=== PATIENT | male | born 1950 | race Asian ===

== ENCOUNTER → 2024-05-02 | Outpatient (CLI) | payer OTHER, MEDICAID, SELFPAY ==
--- NOTE | 2024-05-02 10:27 | XR_ITS ---
Examination: Knee, left , 3 views Technique: Knee AP, lateral, oblique 3 views Date and time of exam: May 02, 2024 1156 hours INDICATIONS: Left knee pain beginning 2 years ago FINDINGS: Moderate osteopenia Mild narrowing medial joint space Moderate knee effusion seen with internal derangement of the knee IMPRESSION: Mild narrowing medial joint space No fracture Moderate knee effusion
== END | disposition home or self-care (01) ==
PROVIDERS: PCP Physician Assistant; Referring Provider Physician Assistant; Visit Provider Physician Assistant
DX: M25.462 Effusion, left knee (principal); M25.862 Other specified joint disorders, left knee
CPT/HCPCS: 73562

== ENCOUNTER → 2024-06-10 | Outpatient (CLI) | payer OTHER, MEDICAID, SELFPAY ==
--- NOTE | 2024-06-10 13:30 | XR_ITS ---
Exam: MRI knee without contrast, left Date and time of exam: June 10, 2024 at 1409 hours INDICATIONS: Left knee pain beginning March 2024 Technique: Multiple axial, coronal, and sagittal sections on the knee have been obtained. T2-Weighted sagittal, fat-suppressed images, TR 3,500, TE 62, T2 weighted coronal fat-saturated images, TR 3,500, TE 62 Proton density sagittal sections, TR 1800, TE 31. T-1 weighted coronal images, TR 524, TE 13.0 Findings: Medial meniscus anterior horn intact. Medial meniscus, body is intact. Posterior horn medial meniscus intact. Lateral meniscus anterior horn is intact Lateral meniscus, body is intact Posterior horn lateral meniscus is intact Anterior cruciate ligament appears intact. Posterior cruciate ligament appears intact. Knee effusion is large with suprapatellar joint like. Quadriceps and patellar tendons appear intact. There is no evidence of tendinosis. Inflammatory change or fracture of Hoffa's fat pad is not seen. Medial patellar facet demonstrates moderate thinning. Lateral patellar facet cartilage demonstrates moderate thinning. Trochlear cartilage demonstrates moderate thinning. Marrow signal adequate. 16mm ossified joint body suprapatellar joint space, 10 mm ossified joint body posterior joint space Medial collateral ligament appears intact. No meniscocapsular separation is seen. Illiotibial band and fibular collateral ligament are intact. Biceps femoris tendons appear intact. Medial femoral condylar articular cartilage demonstrates moderate thinning. Lateral femoral condylar articular cartilage demonstratesmoderate thinning. Tibial plateau cartilage demonstrates moderate thinning. Impression: Moderate sprain anterior cruciate ligament Ossified joint bodies as above
== END | disposition home or self-care (01) ==
LOC: SMRI 06-13 08:12
PROVIDERS: PCP Physician Assistant; Referring Provider Physician Assistant; Visit Provider Physician Assistant
DX: S83.512A Sprain of anterior cruciate ligament of left knee, initial encounter (principal); X58.XXXA Exposure to other specified factors, initial encounter; M67.864 Other specified disorders of tendon, left knee
CPT/HCPCS: 73721

== ENCOUNTER → 2024-07-31 | Outpatient (CLI) | payer OTHER, MEDICAID, SELFPAY ==
--- NOTE | 2024-07-31 09:00 | XR_ITS ---
Examination: Upper GI series with KUB Fluoroscopy Esophagram standard Exam date and time: July 31, 2024 1109 hours INDICATIONS: Abdominal pain and bloating beginning one year ago TECHNIQUE AND FINDINGS: Prop Sawyer AP supine abdomen demonstrates moderate to large amounts of stool throughout the colon Patient swallowed thin barium with 34 spot fluoroscopic films of the esophagus stomach and duodenum obtained Primary peristaltic esophageal waves noted Moderate intermittent gastroesophageal reflux No encasing constricting esophageal lesion Mild intermittent gastroesophageal reflux There is no stricture at the gastroesophageal junction No gastric mass deformity or ulceration Duodenal bulb expands symmetrically Small benign duodenal diverticulum second portion of the duodenum Jejunal loops unremarkable IMPRESSION: Moderate intermittent gastroesophageal reflux No gastric mass deformity or ulceration Negative for duodenitis Fluoroscopy 0.31 minutes 34 spot fluoroscopic films of the esophagus stomach
== END | disposition home or self-care (01) ==
PROVIDERS: PCP Physician Assistant; Referring Provider Physician Assistant; Visit Provider Physician Assistant
DX: K21.9 Gastro-esophageal reflux disease without esophagitis (principal)
CPT/HCPCS: 74240; Z7610

== ENCOUNTER 2024-08-22 13:56 | Outpatient (AMB) | payer OTHER, MEDICAID, SELFPAY ==
[2024-08-22 14:16] VITALS: BP 130/77; PULSE 82; RESP 18; TEMP 36.3; O2SAT 96; BMI 24.7
--- NOTE | 2024-08-22 14:16 | PD.ORTHCLVIS ---
Vital signs 08/22/24 14:16 Height 1.47 m Height Method Stated Weight 53.666 kg Weight Measurement Method Standing Scale BMI 24.7 BP 130/77 Blood Pressure Source Automatic Cuff Blood Pressure Location Left Upper Arm Position Sitting Respiration 18 Pulse 82 Pulse Source Monitor Temp 97.3 F Temp Source Temporal Artery Scan Pulse Oximetry (%) 96 Oxygen Delivery Method Room Air Med/Allergies Allergies & Medications Allergies No Known Allergies Allergy (Mild, Verified 08/22/24 14:17) Medication Reconciliation amlodipine 5 mg tablet 5 mg PO QDAY #30 tabs 04/16/22 [Rx Confirmed 08/22/24] atorvastatin 40 mg tablet 40 mg PO QDAY 08/25/22 [History Confirmed 08/22/24] clopidogrel 75 mg tablet 75 mg PO QDAY 08/25/22 [History Confirmed 08/22/24] ondansetron 4 mg disintegrating tablet 4 mg PO Q8H 08/25/22 [History Confirmed 08/22/24] pantoprazole 20 mg tablet,delayed release 20 mg PO QDAY 11/25/22 [History Confirmed 08/22/24] sennosides 8.6 mg-docusate sodium 50 mg tablet (Senexon-S) 1 tab-cap PO BID PRN constipation 11/25/22 [History Confirmed 08/22/24] Exam Exam Patient is in no acute distress and is cooperative with the examination today. Breathing is nonlabored. Patient has a normal mood and affect. Bilateral extremities were evaluated and demonstrates sensation intact to light touch. Palpable pedal pulses are present. No significant edema is present. Bilateral hips were examined. The patient has no pain with log roll of the hips. Internal rotation to 30 degrees and external rotation to 30 degrees is painless. Negative FADIR. Right knee was examined today. The right knee is in reasonable alignment. Range of motion from 0-120 degrees. Knee is stable to varus and valgus as well as AP translation with <5mm. Patient has a negative McMurrays. There is no pain with patellofemoral compression and no crepitus noted. The knee is nontender to palpation. Left knee was examined today. The left knee is in varus alignment. Range of motion from 0-115 degrees. Knee is stable to varus and valgus as well as AP translation with <5mm. Patient has a negative McMurrays. There is no pain with patellofemoral compression and no crepitus noted. The knee is tender to palpation medially. Nonweightbearing x-rays were reviewed. This demonstrates minimal joint space narrowing. I will get weightbearing x-rays as well Assessment and Plan Problem List (1) Arthritis of left knee: Status: Acute Plan: Patient is a pleasant 74-year-old male with left knee pain and left knee arthritis. We discussed nonoperative and operative options. We would proceed with conservative treatment at this time. He cannot take anti-inflammatories because of his Plavix Recommend knee cortisone injection as patient would like to proceed with conservative treatment at this time. The risks and benefits of the procedure were reviewed with the patient and patient gave verbal consent to continue with the procedure. Procedure: performed by Dr. Montez Using sterile technique the left knee was thoroughly prepped with alcohol, and approximately 1 cc of Kenalog 40 mg/mL and 4 cc of 1% lidocaine was injected without resistance into the medial tibial femoral joint space. The patient tolerated the procedure. 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 ([id number]) Surgical Proc/IM SQ injection Major Surgical Procedure: Yes (KNEE INJECTION) MA Intake Visit Data Collection New Patient or Established: New Patient (never been to [facility]) Reason for Visit:: LEFT KNEE PAIN Seen by Clinical Staff ONLY (RN/MA): No Flight Control Specialist Required: Yes PCP or OBGYN visit in last 3 months: Yes Hx Now: No Do You Feel Safe at Home: Yes Authorities Contacted: N/A Questionairres Past Medical History Past Medical History Have you ever been diagnosed with any of the following: Cardiology Problems Hypercholesterolemia: Yes Congestive Heart Failure: No Hypertension: Yes Respiratory Problems Chronic Obstructive Pulmonary Disease (COPD): No Smoking: No Smoking Exposure: No Genital/Urinary Problems Renal Disease: No Endocrine Problems Diabetes Mellitus Type 1: No Diabetes Mellitus Type 2: No Subjective Visit Visit for: follow up visit and knee Immunization / Flu Flu Vaccine in the Last 12 Months: No Flu Vaccine Exclusion Criteria: No Exclusion Criteria History of Present Illness Chief complaint: Left knee pain Patient is a 74-year-old male with a history of a stroke on the right side with left knee pain for 1-1/2 years. He has not had any treatment on his left knee. He reports his difficulty walking and feels stiff. Pain Pain level (0-10): 6 Pain duration: WITH MOVEMENT Pain location: outside (lateral) Pain quality: dull and aching Pain timing: increases with activity and stairs Associated signs & symptoms: weakness Ambulatory data Ambulatory device: cane Treatments Improvement with previous injections: No Improvement with PT: No Improvement with NSAIDS: no Review of Systems Review of Systems: All systems negative unless otherwise noted in HPI.
--- NOTE | 2024-08-22 14:34 | XR_ITS ---
Examination: Bilateral AP knees single view Standing AP lateral axial left knee 3 views TECHNIQUE: Bilateral standing AP knees single view Standing left knee AP lateral axial 3 views total 4 views Exam date and time: August 22, 2024 1444 hours INDICATIONS: Chronic knee pain. FINDINGS: Moderate osteopenia Mild narrowing medial joint spaces Moderate left knee effusion No fracture IMPRESSION: Mild narrowing medial joint spaces
== END 2024-08-22 14:31 | disposition home or self-care (01) ==
LOC: HODSRG 13:56
PROVIDERS: PCP Physician Assistant; Referring Provider Physician Assistant; Supervising Provider Orthopaedic Surgery Adult Reconstructive Orthopaedic Surgery; Visit Provider Orthopaedic Surgery Adult Reconstructive Orthopaedic Surgery
DX: M17.12 Unilateral primary osteoarthritis, left knee (principal); M25.562 Pain in left knee; M25.862 Other specified joint disorders, left knee; I10 Essential (primary) hypertension; E78.00 Pure hypercholesterolemia, unspecified
CPT/HCPCS: 20610; 73564; 99204; J3301; J3490; G0463

== ENCOUNTER 2024-11-19 11:15 | Outpatient (RCR) | payer OTHER, MEDICAID, SELFPAY ==
--- NOTE | 2024-11-19 11:34 | PT.OIERPT ---
PT OP Initial Eval Patient Information Outpatient Physical Therapy Treatment Date: 11/19/24 Visit Reasons: left leg weakness Medical Diagnosis: M62.562 Treatment Dx #1: L knee weakness Start of Care: 11/19/24 Date of Onset: 6 months ago Smoking Status Smoking Status: Light (< 1 pack/day) Cessation Counseling Provided: SHAUN was advised that quitting smoking is the single most important factor to protect the health of themselves and their family. Discussed the benefits of quitting smoking with patient. Encouraged patient to quit smoking and provided Cessation assistance materials and resources. 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 Pt c/o L knee pain prior to cortisone shot that has resolved since then but the L knee feels weak. He is ambulating with cane for <5 mins. PMH: CVA with L sided hemiplegia, L knee OA Pt goal: more strength in L LE to not fall and to walk further Objective: 30 seconds chair to stand: 10 Strength: Quads: L: 4-/5 R: 4/5 HS:4-/5 R: 4/5 Gait: symmetrical with cane Assessment: Pt presents with L quad and HS weakness compared to the R LE after cortisone shot. He may benefit from skilled therapy to meet goals and has fair rehab potential. Short Term and Central Sterilization Technician Goals 1. Ind with HEP 2. Improved strength of L quads and HS to 4/5 3. Pt will ambulate x10 mins with steady balance and cane Treatment Plan 1. Manual therapy ? 2. Therex ? 3. Modalities as indicated, moist heat, ice, estim Frequency and Duration: 1-2x a week for 6 Rx visits Certification Dates: 11/19/24 to 02/18/25 Procedure Charges OP PT Eval Mod Complex 30 minutes: Yes
== END 2024-11-25 23:59 | disposition home or self-care (01) ==
LOC: CPTX 11:15
PROVIDERS: PCP Physician Assistant; Referring Provider Physician Assistant; Visit Provider Physician Assistant
DX: R53.1 Weakness (principal); M62.562 Muscle wasting and atrophy, not elsewhere classified, left lower leg; Z71.6 Tobacco abuse counseling; F17.210 Nicotine dependence, cigarettes, uncomplicated
CPT/HCPCS: 97162

== ENCOUNTER 2024-11-21 13:47 | Outpatient (AMB) | payer OTHER, MEDICAID, SELFPAY ==
[2024-11-21 14:02] VITALS: BP 127/72; PULSE 87; RESP 16; TEMP 36.2; O2SAT 97; BMI 24.0
--- NOTE | 2024-11-21 14:02 | ORTHONT_ITS ---
Vital signs 11/21/24 14:02 Height 1.47 m Height Method Stated Weight 51.936 kg Weight Measurement Method Standing Scale BMI 24.0 BP 127/72 Blood Pressure Source Automatic Cuff Blood Pressure Location Left Upper Arm Position Sitting Respiration 16 Pulse 87 Pulse Source Monitor Temp 97.1 F Temp Source Temporal Artery Scan Pulse Oximetry (%) 97 Oxygen Delivery Method Room Air Med/Allergies Allergies & Medications Allergies No Known Allergies Allergy (Mild, Verified 11/21/24 14:03) Medication Reconciliation amlodipine 5 mg tablet 5 mg PO QDAY #30 tabs 04/16/22 [Rx Confirmed 11/21/24] atorvastatin 40 mg tablet 40 mg PO QDAY 08/25/22 [History Confirmed 11/21/24] clopidogrel 75 mg tablet 75 mg PO QDAY 08/25/22 [History Confirmed 11/21/24] ondansetron 4 mg disintegrating tablet 4 mg PO Q8H 08/25/22 [History Confirmed 11/21/24] pantoprazole 20 mg tablet,delayed release 20 mg PO QDAY 11/25/22 [History Confirmed 11/21/24] sennosides 8.6 mg-docusate sodium 50 mg tablet (Senexon-S) 1 tab-cap PO BID PRN constipation 11/25/22 [History Confirmed 11/21/24] Exam Exam Patient is in no acute distress and is cooperative with the examination today. Breathing is nonlabored. Patient has a normal mood and affect. Bilateral extremities were evaluated and demonstrates sensation intact to light touch. Palpable pedal pulses are present. No significant edema is present. Bilateral hips were examined. The patient has no pain with log roll of the hips. Internal rotation to 30 degrees and external rotation to 30 degrees is painless. Negative FADIR. Right knee was examined today. The right knee is in reasonable alignment. Range of motion from 0-120 degrees. Knee is stable to varus and valgus as well as AP translation with <5mm. Patient has a negative McMurrays. There is no pain with patellofemoral compression and no crepitus noted. The knee is nontender to palpation. Left knee was examined today. The left knee is in varus alignment. Range of motion from 0-115 degrees. Knee is stable to varus and valgus as well as AP translation with <5mm. Patient has a negative McMurrays. There is no pain with patellofemoral compression and no crepitus noted. The knee is tender to palpation medially. Nonweightbearing x-rays were reviewed. This demonstrates minimal joint space narrowing. I will get weightbearing x-rays as well Assessment and Plan Problem List (1) Arthritis of left knee: Status: Acute Plan: Patient is a pleasant 74-year-old male with left knee pain and left knee arthritis. We discussed nonoperative and operative options.He did well with an injection for the left knee arthritis. His left hip has been hurting him recently we will get left hip x-rays as well. I will see him back after his x- rays are done Advanced Care Planning Discussion Advance care planning discussed with:: patient Office Procedures GNS Level of Care Nursing/Assessment Patient Status: Established Patient Nursing Assessment/Reassesment: Medication Reconciliation, Update PMH in EMR and Vital Signs Coordination of Care: Complex Care and Chronic Disease 1-5, Education Complex Pt/Fam, Consent,records obtained, informed consent, Results/Orders obtained and Staff clarify orders Established Patient Charge Established Patient Point Assignment: 95 Established Patient Point Charge: EP Level 3 (80-115) MA Intake Visit Data Collection New Patient or Established: Established Patient (seen at [facility] within 3 years) Reason for Visit:: 3 MNTH FOLLOW UP LEFT KNEE PAIN Seen by Clinical Staff ONLY (RN/MA): No Mobile Health Vehicle Operator Required: No PCP or OBGYN visit in last 3 months: Yes Hx Now: No Do You Feel Safe at Home: Yes Authorities Contacted: N/A Questionairres Past Medical History Past Medical History Have you ever been diagnosed with any of the following: Cardiology Problems Hypercholesterolemia: Yes Congestive Heart Failure: No Hypertension: Yes Respiratory Problems Chronic Obstructive Pulmonary Disease (COPD): No Smoking: No Smoking Exposure: No Genital/Urinary Problems Renal Disease: No Endocrine Problems Diabetes Mellitus Type 1: No Diabetes Mellitus Type 2: No Subjective Visit Visit for: follow up visit and knee (LEFT KNEE ) Immunization / Flu Flu Vaccine in the Last 12 Months: Yes Flu Vaccine Exclusion Criteria: Already Received History of Present Illness Chief complaint: Left knee pain Patient is a 74-year-old male with a history of a stroke on the right side with left knee pain for 1-1/2 years. He has not had any treatment on his left knee. He had an injection of his left knee reports the pain is helped tremendously. He reports his left hip has been hurting primarily in the groin and buttocks Personal History Red flag PMH: none Pain Pain level (0-10): 4 Pain duration: 3 MONTHS Pain location: anterior Pain quality: sharp Pain timing: night and increases with activity Associated signs & symptoms: none Ambulatory data Ambulatory device: cane Walking distance (minutes): 1 Treatments Number of previous injections: 1 Improvement with previous injections: No Number of Physical Therapy sessions: 0 Improvement with PT: No Improvement with NSAIDS: n/a Review of Systems Review of Systems: All systems negative unless otherwise noted in HPI.
--- NOTE | 2024-11-21 14:05 | XR_ITS ---
Examination:Left hip AP, lateral, AP pelvis 3 views Technique: Hip AP lateral, AP pelvis, 3 views Exam date and time:91036, 1417 hours INDICATIONS: Left hand pain beginning 3 months ago. FINDINGS: No left hip fracture or dislocation No avascular necrosis Minimal bilateral hip osteoarthritis IMPRESSION: Minimal bilateral hip osteoarthritis.
== END 2024-11-21 14:08 | disposition home or self-care (01) ==
LOC: HODSRG 13:47
PROVIDERS: PCP Physician Assistant; Referring Provider Physician Assistant; Supervising Provider Orthopaedic Surgery Adult Reconstructive Orthopaedic Surgery; Visit Provider Orthopaedic Surgery Adult Reconstructive Orthopaedic Surgery
DX: M17.12 Unilateral primary osteoarthritis, left knee (principal); M25.562 Pain in left knee; I10 Essential (primary) hypertension; E78.00 Pure hypercholesterolemia, unspecified; Z86.73 Personal history of transient ischemic attack (TIA), and cerebral infarction without residual deficits
CPT/HCPCS: 73502; 99213; G0463

== ENCOUNTER 2024-12-19 14:05 | Outpatient (AMB) | payer OTHER, MEDICAID, SELFPAY ==
[2024-12-19 14:12] VITALS: BP 119/71; PULSE 86; RESP 18; TEMP 36.8; O2SAT 94; BMI 24.2
--- NOTE | 2024-12-19 14:12 | ORTHONT_ITS ---
Vital signs 12/19/24 14:12 Height 1.47 m Height Method Stated Weight 52.39 kg Weight Measurement Method Standing Scale BMI 24.2 BP 119/71 Blood Pressure Source Automatic Cuff Blood Pressure Location Left Upper Arm Position Sitting Respiration 18 Pulse 86 Pulse Source Monitor Temp 98.2 F Temp Source Temporal Artery Scan Pulse Oximetry (%) 94 L Oxygen Delivery Method Room Air Med/Allergies Allergies & Medications Allergies No Known Allergies Allergy (Mild, Verified 12/19/24 14:13) Medication Reconciliation amlodipine 5 mg tablet 5 mg PO QDAY #30 tabs 04/16/22 [Rx Confirmed 12/19/24] atorvastatin 40 mg tablet 40 mg PO QDAY 08/25/22 [History Confirmed 12/19/24] clopidogrel 75 mg tablet 75 mg PO QDAY 08/25/22 [History Confirmed 12/19/24] ondansetron 4 mg disintegrating tablet 4 mg PO Q8H 08/25/22 [History Confirmed 12/19/24] pantoprazole 20 mg tablet,delayed release 20 mg PO QDAY 11/25/22 [History Confirmed 12/19/24] sennosides 8.6 mg-docusate sodium 50 mg tablet (Senexon-S) 1 tab-cap PO BID PRN constipation 11/25/22 [History Confirmed 12/19/24] Exam Exam Patient is in no acute distress and is cooperative with the examination today. Breathing is nonlabored. Patient has a normal mood and affect. Bilateral extremities were evaluated and demonstrates sensation intact to light touch. Palpable pedal pulses are present. No significant edema is present. Bilateral hips were examined. The patient has no pain with log roll of the hips. Internal rotation to 30 degrees and external rotation to 30 degrees is painless. Negative FADIR. Right knee was examined today. The right knee is in reasonable alignment. Range of motion from 0-120 degrees. Knee is stable to varus and valgus as well as AP translation with <5mm. Patient has a negative McMurrays. There is no pain with patellofemoral compression and no crepitus noted. The knee is nontender to palpation. Left knee was examined today. The left knee is in varus alignment. Range of motion from 0-115 degrees. Knee is stable to varus and valgus as well as AP translation with <5mm. Patient has a negative McMurrays. There is no pain with patellofemoral compression and no crepitus noted. The knee is tender to palpation medially. X-rays of the left hip demonstrate minimal joint space narrowing Assessment and Plan Problem List (1) Arthritis of left knee: Status: Acute Plan: Patient is a pleasant 74-year-old male with left knee pain and left knee arthritis. We discussed nonoperative and operative options.He did well with an injection for the left knee arthritis. We went over his x-ray results and he has minimal arthritis. We will see him back on an as-needed basis at this time Advanced Care Planning Discussion Advance care planning discussed with:: patient Office Procedures GNS Level of Care Nursing/Assessment Patient Status: Established Patient Nursing Assessment/Reassesment: Medication Reconciliation, Update PMH in EMR and Vital Signs Coordination of Care: Complex Care and Chronic Disease 1-5, Education Complex Pt/Fam, Consent,records obtained, informed consent, Results/Orders obtained and Staff clarify orders Established Patient Charge Established Patient Point Assignment: 95 Established Patient Point Charge: EP Level 3 (80-115) MA Intake Visit Data Collection New Patient or Established: Established Patient (seen at [facility] within 3 years) Reason for Visit:: 3 MNTH FOLLOW UP LEFT KNEE PAIN Seen by Clinical Staff ONLY (RN/MA): No [employer] Supervisor Required: No PCP or OBGYN visit in last 3 months: Yes Hx Now: No Do You Feel Safe at Home: Yes Authorities Contacted: N/A Questionairres Past Medical History Past Medical History Have you ever been diagnosed with any of the following: Cardiology Problems Hypercholesterolemia: Yes Congestive Heart Failure: No Hypertension: Yes Respiratory Problems Chronic Obstructive Pulmonary Disease (COPD): No Smoking: No Smoking Exposure: No Genital/Urinary Problems Renal Disease: No Endocrine Problems Diabetes Mellitus Type 1: No Diabetes Mellitus Type 2: No Subjective Visit Visit for: follow up visit and knee (LEFT KNEE ) Immunization / Flu Flu Vaccine in the Last 12 Months: Yes Flu Vaccine Exclusion Criteria: Already Received History of Present Illness Chief complaint: Left knee pain Patient is a 74-year-old male with a history of a stroke on the right side with left knee pain for 1-1/2 years. He has not had any treatment on his left knee. He had an injection of his left knee reports the pain has helped tremendously. He reports his left hip has been hurting primarily in the groin and buttocks at the last visit which is resolved completely. He has no pain at all and is doing well at this time Personal History Red flag PMH: none Pain Pain level (0-10): 4 Pain duration: 3 MONTHS Pain location: anterior Pain quality: sharp Pain timing: night and increases with activity Associated signs & symptoms: none Ambulatory data Ambulatory device: cane Walking distance (minutes): 1 Treatments Number of previous injections: 1 Improvement with previous injections: No Number of Physical Therapy sessions: 0 Improvement with PT: No Improvement with NSAIDS: n/a Review of Systems Review of Systems: All systems negative unless otherwise noted in HPI.
== END 2024-12-19 14:15 | disposition home or self-care (01) ==
LOC: HODSRG 14:05
PROVIDERS: PCP Physician Assistant; Referring Provider Physician Assistant; Supervising Provider Orthopaedic Surgery Adult Reconstructive Orthopaedic Surgery; Visit Provider Orthopaedic Surgery Adult Reconstructive Orthopaedic Surgery
DX: M17.12 Unilateral primary osteoarthritis, left knee (principal); M25.562 Pain in left knee; M25.552 Pain in left hip; Z86.73 Personal history of transient ischemic attack (TIA), and cerebral infarction without residual deficits; I10 Essential (primary) hypertension; E78.00 Pure hypercholesterolemia, unspecified
CPT/HCPCS: 99213; G0463

== ENCOUNTER 2024-12-26 10:30 | Outpatient (RCR) | payer OTHER, MEDICAID, SELFPAY ==
--- NOTE | 2024-12-02 15:52 | PT.ODAYNRPT ---
PT Outpatient Daily Note OP Daily Note Outpatient Physical Therapy Treatment Date: 12/02/24 Visit Reasons: left leg weakness Subjective: Same as time of evaluation Objective: See F/S for therex Assessment: Good strength of L LE with step ups and partial body weight squats Plan: Continue per POC Length of Time (minutes) of Treatment: 30 Minutes Procedure Charges Therapeutic Exercise 30 minutes: Yes
--- NOTE | 2024-12-05 11:16 | PT.ODAYNRPT ---
PT Outpatient Daily Note OP Daily Note Outpatient Physical Therapy Treatment Date: 12/05/24 Visit Reasons: left leg weakness Subjective: About the same as last time Objective: See F/S for therex Assessment: Good strength of L LE with step ups and partial body weight squats Plan: Continue per POC Length of Time (minutes) of Treatment: 30 Minutes Procedure Charges Therapeutic Exercise 30 minutes: Yes
--- NOTE | 2024-12-17 14:26 | PT.ODAYNRPT ---
PT Outpatient Daily Note OP Daily Note Outpatient Physical Therapy Treatment Date: 12/17/24 Visit Reasons: left leg weakness Subjective: About the same as last time Objective: See F/S for therex Assessment: Good strength of L LE with step ups and partial body weight squats Plan: Continue per POC Length of Time (minutes) of Treatment: 30 Minutes Procedure Charges Therapeutic Exercise 30 minutes: Yes
--- NOTE | 2024-12-19 11:47 | PT.ODAYNRPT ---
PT Outpatient Daily Note OP Daily Note Outpatient Physical Therapy Treatment Date: 12/19/24 Visit Reasons: left leg weakness Subjective: No new complaints. Objective: Please see flow sheet for ther ex list. Assessment: Verbal and tactile cues to adjust foot placement on TG squat machine to perform with good technique. Plan: Continue with POC. Length of Time (minutes) of Treatment: 30 Minutes Procedure Charges Therapeutic Exercise 30 minutes: Yes
--- NOTE | 2024-12-24 14:38 | PT.ODAYNRPT ---
PT Outpatient Daily Note OP Daily Note Outpatient Physical Therapy Treatment Date: 12/24/24 Visit Reasons: left leg weakness Subjective: Pt dining room tables set up attendant says pt is feeling better. Objective: Please see flow sheet for ther ex list. Assessment: Added hurdles exercise, pt performed with good technique post verbal cues and demonstrations. Plan: Continue with POC. Length of Time (minutes) of Treatment: 30 Minutes Procedure Charges Therapeutic Exercise 30 minutes: Yes
--- NOTE | 2024-12-26 10:58 | PTNOTE_ITS ---
PT Outpatient Daily Note OP Daily Note Outpatient Physical Therapy Treatment Date: 12/26/24 Visit Reasons: left leg weakness Subjective: Pt ambulating short distance with no cane and as per family member pt has been performing HEP. No falls or LOB to report. Objective: Please see flow sheet for ther ex list. Assessment: Pt demonstrates improved tolerance with interventions progressing strengthening to work toward meeting rehab goals. Plan: DC. Pt requesting to be done with PT as per pt family paraprofessional interpreter, pt had one visit remaining. Length of Time (minutes) of Treatment: 30 Minutes Procedure Charges Therapeutic Exercise 30 minutes: Yes
--- NOTE | 2024-12-26 17:31 | PT.ODS1RPT ---
PT OP Progress/Discharge Note Date of Service: 12/26/24 Progress Note/DC Note Progress Note/Discharge Note: DC Note Patient Information Visit Reasons: left leg weakness Service Continue Service or Discharge: Discharge Discharge Date: 12/26/24 Status Subjective: Pt's caregiver came back to say he wanted to be done with therapy and today to be last visit since he's feeling better. No other details were given. Objective: Pt was treated by Aileen Silverio PTA Assessment: Pt attended 6/7 Rx sessions and says he's doing better but wasn't reassessed. Plan: Self D/C
== END 2024-12-26 23:59 | disposition home or self-care (01) ==
LOC: CPTX 10:30
PROVIDERS: PCP Physician Assistant; Referring Provider Physician Assistant; Visit Provider Physician Assistant
DX: M25.562 Pain in left knee (principal); R53.1 Weakness; M62.562 Muscle wasting and atrophy, not elsewhere classified, left lower leg
CPT/HCPCS: 97110